=== PATIENT | male | born 1960 | race Caucasian/White ===

== ENCOUNTER 2023-05-01 16:38 | Observation (INO) | payer OTHER ==
[~2023-05-01] VITALS: Ht 182.9 cm; Wt 99.0 kg
[2023-05-01] VITALS (28 sets, daily range): BP systolic 122–185; BP diastolic 71–96
--- NOTE | 2023-05-01 16:40 | NUR ---
PT IN ROOM VIA EMS FOR SYNCOPAL EPISODE AFTER SMOKING MARIJUANA. PT STATED HE FELT LIKE PASSING OUT. PT DID NOT FALL OR HURT HIMSELF
[2023-05-01] MEDS ORDERED: SODIUM CHLORIDE 0.9% 1,000 ML IV ONE (16:45)
[2023-05-01 17:09] LABS: BASO% 0.5 % (0-3); EOS% 1.7 % (0-8); HEMATOCRIT 43.9 % (39.0-50.0); HEMOGLOBIN 14.5 g/dl (14.0-18.0); IMMATURE GRANULOCYTES 0.2 % (0.0-5.0); LYMPH% 18.8 % (15-41); MEAN CELL VOLUME 94.2 fL CALC (80.0-100.0); MEAN CORPUSCULAR HGB 31.1 pG CALC (26.0-32.0); MONO% 9.3 % (2-13); NEUT# 4.51 thou/uL (1.82-7.42); NEUT% 69.5 % (42-76); RED BLOOD COUNT 4.66 mill/uL (4.70-6.10)
[2023-05-01 17:30] LABS: ALBUMIN 4.5 g/dL (3.2-5.0); ALKALINE PHOSPHATASE 73 u/l (38-126); ANION GAP 11 (6-22 (CALC)); BILIRUBIN, TOTAL 0.8 mg/dL (0.2-1.3); BUN 17 mg/dL (8-23); BUN/CREATININE RATIO 15 (12-20 (CALC)); CARBON DIOXIDE 26 mmol/l (22-30); CHLORIDE 103 mmol/l (95-108); CREATININE 1.2 mg/dL (0.7-1.3); ETHYL ALCOHOL 11 mg/dl (0-30); GFR FOR AFR.AMER. > 60 ML/MIN (>=60 (CALC)); GFR OTHER RACES > 60 ML/MIN (>=60 (CALC)); POTASSIUM 3.7 mmol/l (3.5-5.1); SGOT/AST 34 u/l (19-48); SODIUM 137 mmol/l (137-146); TOTAL PROTEIN 7.6 g/dL (6.3-8.2)
--- NOTE | 2023-05-01 17:45 | NUR ---
PT IN ROOM RESTING WITH EYES OPEN. NO ISSUES OR CONCERN TO REPORT AT THIS TIME. VSS, NAD. PT IS AWAITING TEST RESULTS AT THIS TIME.
[2023-05-01 17:58] LABS: URINE BILIRUBIN - DIPSTICK Negative (NEGATIVE); URINE BLOOD DIPSTICK Negative (NEGATIVE); URINE COLOR Yellow; URINE GLUCOSE - DIPSTICK Negative (NEGATIVE); URINE KETONE Negative (NEGATIVE); URINE LEUK ESTERASE Negative (NEGATIVE); URINE NITRITE - DIPSTICK Negative (Negative); URINE PROTEIN - DIPSTICK Negative (NEG-TRACE); URINE UROBILINOGEN - DIPSTICK 0.2 E.U./dL (0.2)
--- NOTE | 2023-05-01 18:50 | NUR ---
PT IN ROOM RESTING. NO CONCERNS, VITALS ARE STABLE, NO DISTRESS, PT IS STILL PENDING RESULTS FOR DISPO
[2023-05-01] MEDS ORDERED: SODIUM CHLORIDE 0.9% 1,000 ML IV PRN (19:50)
[2023-05-01] MEDS ORDERED: ACETAMINOPHEN 325 MG/TAB PO PRN (19:50)
[2023-05-01] MEDS ORDERED: MAGNESIUM HYDROXIDE 30 ML UDC PO PRN (19:50)
[2023-05-01] MEDS ORDERED: ENOXAPARIN SODIUM 40 MG/0.4 ML SYR SC SCH (21:00)
--- NOTE | 2023-05-01 23:45 | NUR ---
RECIEVED REPORT FROM [facility] AT THIS TIME, PATIENT AWAITING TRANSPORT TO FLOOR, PATIENT VOICES NO FURTHER QUESTIONS OR CONCERNS AT THIS TIME.
--- NOTE | 2023-05-02 00:21 | NUR ---
REPORT CALLED TO [facility]. [place] [facility] [place]
[2023-05-02 00:45] VITALS: BP 150/81
--- NOTE | 2023-05-02 00:45 | NUR ---
PATIENT TRANSPORTED TO [facility] FLOOR BY UTILITY WORKER [facility] AT THIS TIME VIA W/C.
--- NOTE | 2023-05-02 00:52 | NUR ---
patient vitals bp: 150/81 pulse: 50 ox: 94 tempature: 97.2 Weight: 105.8
[2023-05-02 04:01] VITALS: BP 112/62
[2023-05-02 05:17] LABS: BASO% 0.4 % (0-3); EOS% 2.8 % (0-8); HEMATOCRIT 41.4 % (39.0-50.0); HEMOGLOBIN 13.5 g/dl (14.0-18.0); IMMATURE GRANULOCYTES 0.2 % (0.0-5.0); LYMPH% 18.8 % (15-41); MEAN CELL VOLUME 95.8 fL CALC (80.0-100.0); MEAN CORPUSCULAR HGB 31.3 pG CALC (26.0-32.0); MEAN CORPUSCULAR HGB CONC 32.6 g/dL CAL (32.0-36.0); MONO% 11.3 % (2-13); NEUT# 3.37 thou/uL (1.82-7.42); NEUT% 66.5 % (42-76); RED BLOOD COUNT 4.32 mill/uL (4.70-6.10)
[2023-05-02 05:45] LABS: ANION GAP 7 (6-22 (CALC)); BUN 14 mg/dL (8-23); BUN/CREATININE RATIO 16 (12-20 (CALC)); CARBON DIOXIDE 28 mmol/l (22-30); CHLORIDE 106 mmol/l (95-108); CREATININE 0.8 mg/dL (0.7-1.3); GFR FOR AFR.AMER. > 60 ML/MIN (>=60 (CALC)); GFR OTHER RACES > 60 ML/MIN (>=60 (CALC)); MAGNESIUM 1.9 mg/dL (1.6-2.3); POTASSIUM 3.9 mmol/l (3.5-5.1); SODIUM 137 mmol/l (137-146)
[2023-05-02 07:18] VITALS: BP 132/79
--- NOTE | 2023-05-02 07:50 | NUR ---
ASSESSMENT IS COMPLETED: IV SITE IS FREE FROM REDNESS OR EDEMA. HR IS REG,PULSES ARE STRONG X4,ABD IS SOFT WITH ACTIVE BS. BREATH SOUNDS ARE CLEAR BILATERALLY. TELE MONITOR IN PLACE. CONTINUE TO OBSERVE AND MONITOR.
[2023-05-02] MEDS ORDERED: ASPIRIN REGULA325 M1 PO (09:05)
--- NOTE | 2023-05-02 12:00 | NUR ---
PT HAS BEEN SITTING IN THE CHAIR NO DISTRESS NOTED. IV SITE IS FREE FROM REDNESS OR EDEMA.
--- NOTE | 2023-05-02 14:30 | NUR ---
IV SITE TAKEN OUT AND CATHETER INTACT. TELE MONITOR OFF PT AND DISCHARGE INSTRUCTIONS GIVEN PT AMBULATED OFF THE UNIT.
--- NOTE | 2023-05-02 14:31 | NUR ---
pt discharged and ambulated off the unit
--- NOTE | 2023-05-03 10:22 | NUR ---
Discharge follow up call completed 05/03/23. Pt states he is doing well and has had no issues since discharge. No medication was prescribed at discharge. Pt resides in [place] and his PCP is there. Pt requested information on how to obtain his medical records and have them sent to his PCP in [place]. Instructions were given. No other questions or cncerns were verbalized at this time.
== END 2023-05-02 14:27 | disposition home or self-care (01) | DRG 312 ==
LOC: ED 16:38 → ED-I 17:08 → ED 17:08 → ED-I 19:30 → ED 19:43 → MS2 19:44
PROVIDERS: Family Medicine; ADMIT Student in an Organized Health Care Education/Training Program; ATTEND Student in an Organized Health Care Education/Training Program
DX: R55 Syncope and collapse (principal); F12.90 Cannabis use, unspecified, uncomplicated; Z85.818 Personal history of malignant neoplasm of other sites of lip, oral cavity, and pharynx
CPT/HCPCS: G0378